=== PATIENT | female | born 1950 | race Caucasian/White ===

== ENCOUNTER 2017-02-01 13:37 | Emergency (ER) | payer MEDICARE, OTHER ==
[2017-02-01] MEDS ORDERED: KETOROLAC TROMETHAMINE 30 MG/ML VIAL IV ONE (14:11)
[2017-02-01] MEDS ORDERED: METOCLOPRAMIDE HCL 5 MG/ML VIAL IV ONE (14:11)
[2017-02-01] MEDS ORDERED: KETOROLAC TROMETHAMINE 30 MG/ML VIAL ONE (14:12)
[2017-02-01] MEDS ORDERED: METOCLOPRAMIDE HCL 5 MG/ML VIAL ONE (14:12)
[2017-02-01] MEDS ORDERED: NORMAL SALINE 1,000 ML IV ONE (14:12)
--- NOTE | 2017-02-01 15:11 | ERNOTE ---
Headache ER HPI - Narrative Date of Service: 02/01/17 - General Presenting Symptoms: headache Time Seen by Provider: 02/01/17 14:04 Source: patient, RN notes reviewed, old records Exam Limitations: no limitations - Immun/Allergies/Home Medications Immunizations: IMMUNIZATION HX Immunizations Up to Date Yes History of Influenza Vaccine Yes Hx Pneumococcal Vaccination Yes Allergies/Adverse Reactions: Allergies vyas flavor Allergy (Severe, Verified 02/01/17 13:52) CHERRIES CAUSE ANAPHYLAXIS adhesive tape Adverse Reaction (Mild, Verified 02/01/17 13:52) rash bupropion HCl [From Wellbutrin] Adverse Reaction (Mild, Verified 02/01/17 13:52) "HIGH" FEELING ibuprofen Adverse Reaction (Mild, Verified 02/01/17 13:52) N/V trazodone Adverse Reaction (Mild, Verified 02/01/17 13:52) "HIGH" FEELING Home Medications: HOME MEDICATIONS Alendronate Sodium 70 mg PO Q7D 08/02/13 [Last Taken Unknown] Fesoterodine Fumarate [Toviaz] 4 mg PO DAILY 08/02/13 [Last Taken Unknown] Ranitidine HCl [Acid Control] 150 mg PO BID 08/02/13 [Last Taken Unknown] Albuterol Sulfate [Proair Hfa] 1 - 2 puff IH Q4H PRN 03/31/15 [Last Taken Unknown] Lisinopril [Zestril] 2.5 mg PO HS 05/16/15 [Last Taken Unknown] Amitriptyline HCl [Elavil] 20 mg PO HS tablet 05/17/15 [Last Taken Unknown] Metoprolol Tartrate [Lopressor] 12.5 mg PO DAILY tablet 05/17/15 [Last Taken ] Multivitamins [Multivitamin Connor] 1 cap PO DAILY capsule 05/17/15 [Last Taken Unknown] Simvastatin [Zocor] 20 mg PO HS tablet 05/17/15 [Last Taken Unknown] ARIPiprazole [Abilify] 5 mg PO HS 10/29/15 [Last Taken Unknown] Omeprazole [Prilosec] 20 mg PO BID PRN 10/29/15 [Last Taken Unknown] ALPRAZolam [Xanax] 1 mg PO QID PRN 11/25/15 [Last Taken Unknown] Guaifenesin/Pseudoephedrne HCl [Mucinex D ER Tablet] 1 each PO BID PRN 11/25/15 [Last Taken Unknown] Naproxen Sodium [Anaprox DS] 550 mg PO BID PRN 11/25/15 [Last Taken Unknown] Nitroglycerin [Nitrostat] 0.4 mg SL Q5MX3 PRN 11/25/15 [Last Taken Unknown] Oxymetazoline HCl [Afrin] 2 spray NS BID PRN 11/25/15 [Last Taken Unknown] Warfarin Sodium [Coumadin] 0 mg PO DAILY 11/25/15 [Last Taken 03/06/16] Acetaminophen [Tylenol Arthritis] 1,300 mg PO Q8H PRN 03/12/16 [Last Taken Unknown] Albuterol Sulfate 2.5 mg IH Q4H PRN 03/12/16 [Last Taken Unknown] Aspirin [Aspirin Enteric Coated] 81 mg PO DAILY 03/12/16 [Last Taken Unknown] Calcium Carbonate [Tums [place]] 200 mg PO TID PRN 03/12/16 [Last Taken Unknown ] Desvenlafaxine Succinate [Pristiq ER] 100 mg PO DAILY 03/12/16 [Last Taken Unknown] Dextran 70/Hypromellose [Artificial Tears Eye Drops] 1 drop OP Q1H PRN 03/12/16 [Last Taken Unknown] Enoxaparin Sodium [Lovenox] 70 mg SC Q12H 03/12/16 [Last Taken 03/16/16 07:00] Ergocalciferol (Vitamin D2) [Vitamin D2] 2,000 units PO DAILY 03/12/16 [Last Taken Unknown] Gabapentin [Neurontin] 1,200 mg PO TID 03/12/16 [Last Taken Unknown] Salsalate [Disalcid] 1,500 mg PO BID 03/12/16 [Last Taken Unknown] Sotalol HCl [Sorine] 80 mg PO BID 03/12/16 [Last Taken Unknown] - Pain Pain Score: 6 - History of Present Illness Narrative: Roselyn is a 66-year-old female brought to the emergency department from the radiology waiting area for a headache that began just prior to this. She saw her primary care provider this morning and was having some numbness on her right side. An MRI was ordered and she was waiting to have her test done. Her INR was also checked this morning. It was 2.08. She states that she does not routinely have headaches. Her pain is located across her forehead and radiates around into the back of her head. She denies any associated symptoms. Date (Duration): 02/01/17 Time (Timing): 13:30 Timing of Headache: abrupt Context Headache: Present: new onset Quality: Present: achy Severity Maximum: Present: moderate Severity-Currently: Present: moderate Headache frequency: Present: no recent headache Modifying Factors - (Improves): Denies: rest, movement Modifying Factors - (Worsens): Denies: rest, movement, exposure to light Associated Symptoms: Reports: numbness/tingling. Denies: fever/chills, nausea, vomiting, sweating, nasal congestion, nasal drainage, fatigue, weakness, vision changes, confusion, light-headedness, loss of consciousness, seizures, neck pain /stiffness Exacerbated by:: Denies: light, noise, movement, position Prior Treament: Reports: recently seen, treated by physician. Denies: similar symptoms before Review of Systems - Review of Systems Constitutional: Present: See HPI EYE: Present: see HPI ENT: Present: See HPI Respiratory: Absent: shortness of breath, cough Cardiology: Absent: chest pain, palpitations Gastrointestinal/Abdominal: Present: See HPI Genitourinary: Present: no symptoms reported Musculoskeletal: Present: See HPI Skin: Absent: rash, lesions Neurological: Present: See HPI Endocrine: Present: no symptoms reported Hematologic/Lymphatic: Present: no symptoms reported Psych: Present: no symptoms reported - Patient's Past Medical History Patient History - Medical: Anxiety, Depression, GERD, Other Patient History - Cardiac/Respiratory: Atrial Fibrillation, Asthma, Coronary Heart Disease, Hypertension, Hyperlipidemia, Myocardial Infarction, Valvular Heart Disease Patient History - Cancer: No Hx of Cancer Patient History - Surgical Procedures: Appendectomy, Hysterectomy, Total Knee Replacement, Tubal Ligation, T & A, Other Patient History - Other: None LMP (females 10-50): Menopausal - Social History Living Situations: home Abuse History: No History of abuse Psych History: Hx of Depression, Current tx/ever been on anti-depressants or anti-anxiety meds Smoking Status: Never smoker Alcohol Use: none Drug Use: none - Immunizations Immunizations Up to Date: Yes Hx Pneumococcal Vaccination: Yes History of Influenza Vaccine: Yes Physical Exam - Physical Exam General Appearance: Present: wd/wn, alert, no apparent distress Head Exam: Present: normal inspection, no evidence of injury Eye Exam: PERRL: bilateral, EOMI: left, Abnormal EOM: right - Disconjugate gaze - chronic Ears, Nose, Throat: Present: normal ENT inspection Neck: Present: normal inspection, nontender, supple, full range of motion Respiratory: Present: no respiratory distress, normal breath sounds, no accessory muscle use, lungs clear Cardiovascular/Chest: Present: regular rate, rhythm, no murmur Extremity Exam: Present: normal inspection, normal range of motion, pedal edema - Mild Neurological Exam: Present: alert, oriented, normal mood/affect, no motor/ sensory deficits Skin Exam: Present: normal color, warm/dry ED Progress - Vital Signs Patient's Vital Signs:: I have reviewed the patient's vital signs. Vital Signs: Vital Signs 02/01/17 02/01/17 13:43 14:33 Temperature 36.9 C 36.9 C Pulse Rate 82 78 Respiratory 16 17 Rate Blood Pressure 145/92 141/89 O2 Sat by Pulse 99 99 Oximetry - Progress/Reassessment Chief Complaint: Headache Progress:: Improved Progress Note-Subjective: 02/01/17 15:10 Headache resolved with Toradol, Reglan and NS 1 liter bolus. Patient will have MRI as scheduled at 4:00. Departure Clinical Impression: Headache Qualifiers: Headache type: unspecified Headache chronicity pattern: acute headache Intractability: not intractable Qualified Code(s): R51 - Headache - Departure Disposition: Home Follow Up Needed Condition: Good Instructions: General Headache Without Cause Referrals: Deon Fairbanks MD [Primary Care Provider] -
[2017-02-01 15:55] VITALS: BP 139/81
== END 2017-02-01 15:30 | disposition home or self-care (01) ==
LOC: ER 13:37
DX: R51 Headache (principal)

== ENCOUNTER 2017-04-01 18:37 | Emergency (ER) | payer MEDICARE, OTHER ==
[2017-04-01 19:36] LABS: Hematocrit 40.6 % (37.0-47.0); Hemoglobin 13.4 gm/dL (12.5-16.0); Mean Cell Volume 87.5 fl (78-100); Mean Corpuscular Hemoglobin 28.9 pg (27-31); Mean Platelet Volume 10.4 fl (6.0-9.5); Neutrophil # 4.1 K/mm3 (1.3-6.0); Neutrophil % 55.5 % (42-75.0); Platelet Count 215 K/mm3 (150-450); Red Blood Count 4.64 M/mm3 (4.2-5.4); Red Cell Distribution Width 13.8 % (11.5-14.0); White Blood Count 7.4 K/mm3 (4.0-10.5)
[2017-04-01 19:54] LABS: ALT 24 U/L (19-67); AST 16 U/L (0-48); Albumin * 3.4 gm/dl (3.4-5.0); Alkaline Phosphatase * 84 U/L (50-170); Anion Gap 11.9 mmol/L (6.8-13.8); BUN/Creatinine Ratio 16.7 (9.0-21.6); Bilirubin, Total 0.2 mg/dL (0.0-1.1); Blood Urea Nitrogen 12 mg/dL (3-23); Ca. Corrected For Albumin 8.8 mg/dL (8.4-10.2); Calcium * 8.6 mg/dL (7.9-10.9); Carbon Dioxide 27.5 mmol/L (24-32.6); Chloride 105 mmol/L (97-106); Glucose * 128 mg/dL (70-110); Potassium 3.4 mmol/L (3.4-4.6); Sodium 141 mmol/L (132-142); Total Protein 7.1 gm/dL (6.2-8.2); Troponin I Less than 0.017 ng/ml (0.00-0.10)
[2017-04-01 19:59] LABS: Urine Bilirubin Negative (NEGATIVE); Urine Ketone Negative (NEGATIVE); Urine Nitrite Negative (NEGATIVE); Urine Protein Negative (NEGATIVE); Urine Specific Gravity <=1.005 SP.GR. (1.005-1.010); Urine Urobilinogen Normal (NORMAL)
--- NOTE | 2017-04-01 20:01 | ERNOTE ---
Syncope ER HPI Date of Service: 04/01/17 Stated Complaint: ? Time Seen by Provider: 04/01/17 19:51 Source: patient Immunizations: IMMUNIZATION HX Immunizations Up to Date Yes History of Influenza Vaccine No Hx Pneumococcal Vaccination No Allergies/Adverse Reactions: Allergies vyas flavor Allergy (Severe, Verified 02/01/17 13:52) CHERRIES CAUSE ANAPHYLAXIS adhesive tape Adverse Reaction (Mild, Verified 02/01/17 13:52) rash bupropion HCl [From Wellbutrin] Adverse Reaction (Mild, Verified 02/01/17 13:52) "HIGH" FEELING ibuprofen Adverse Reaction (Mild, Verified 02/01/17 13:52) N/V trazodone Adverse Reaction (Mild, Verified 02/01/17 13:52) "HIGH" FEELING Home Medications: HOME MEDICATIONS ALPRAZolam [Xanax] 1 mg PO TID PRN 04/01/17 [Last Taken Unknown] ARIPiprazole [Abilify] 5 mg PO DAILY 04/01/17 [Last Taken Unknown] Acetaminophen [Tylenol Arthritis] 650 mg PO Q8H PRN 04/01/17 [Last Taken Unknown ] Albuterol Sulfate [Albuterol Sulfate 0.63 MG/3ML] 0.63 mg IH QID 04/01/17 [Last Taken Unknown] Albuterol Sulfate [Proair Hfa] 2 puff IH TID PRN 04/01/17 [Last Taken Unknown] Alendronate Sodium [Fosamax] 70 mg PO Q7D 04/01/17 [Last Taken Unknown] Amitriptyline HCl [Elavil] 10 mg PO HS 04/01/17 [Last Taken Unknown] Aspirin [Aspirin EC] 81 mg PO DAILY 04/01/17 [Last Taken Unknown] Calcium Carbonate [Tums] 500 mg PO TID 04/01/17 [Last Taken Unknown] Desvenlafaxine Succinate [Pristiq] 100 mg PO DAILY 04/01/17 [Last Taken Unknown] Ergocalciferol (Vitamin D2) [Vitamin D2] 2,000 units PO DAILY 04/01/17 [Last Taken Unknown] Fesoterodine Fumarate [Toviaz] 4 mg PO DAILY 04/01/17 [Last Taken Unknown] Gabapentin [Neurontin] 600 mg PO DAILY 04/01/17 [Last Taken Unknown] Guaifenesin/Pseudoephedrne HCl [Mucinex D ER 600-60 mg Tablet] 1 tab PO Q12H PRN 04/01/17 [Last Taken Unknown] Lisinopril [Zestril] 2.5 mg PO HS 04/01/17 [Last Taken Unknown] Multivitamin [One Daily Multivitamin] 1 each PO DAILY 04/01/17 [Last Taken Unknown] Naproxen Sodium 550 mg PO BID PRN 04/01/17 [Last Taken Unknown] Nitroglycerin 0.4 mg SL Q5M PRN 04/01/17 [Last Taken Unknown] Omeprazole 20 mg PO BID PRN 04/01/17 [Last Taken Unknown] Oxymetazoline HCl [Afrin] 2 spray NS BID 04/01/17 [Last Taken Unknown] Polyvinyl Alcohol [Artificial Tears] 1 drop OP Q1H PRN 04/01/17 [Last Taken Unknown] Ranitidine HCl [Zantac] 150 mg PO BID 04/01/17 [Last Taken Unknown] Simvastatin 20 mg PO HS 04/01/17 [Last Taken Unknown] Sotalol HCl [Sorine] 120 mg PO BID 04/01/17 [Last Taken Unknown] Warfarin Sodium [Coumadin] 4 mg PO Q7D 04/01/17 [Last Taken Unknown] Warfarin Sodium [Coumadin] 5 mg PO Q48H 04/01/17 [Last Taken Unknown] - History of Present Illness Narrative: 66 year old who was at a picnic and sitting on a bench. She noted a "weird", feeling and then experienced a syncopal episode. She did not fall to the ground since she was supported by her niece that had been sitting next to her. Denies any chest, back or abdominal pain. No complaints of shortness of breath, palpitations, N/V/D, fevers or chills. Currently she states that she feels fine and thinks that she got hot which caused her to "pass out". History of A-Fib, CAD,anxiety, tachycardia, and syncope. She also states that when A -fib occurs she is able to recognize it, but this did not happen on this occasion. Date (Duration): 04/01/17 Prior Episodes: Present: single episode today Symptoms prior to episode: Present: other - felt strange Activity at time of episode: Present: sitting Character of event: Present: brief (seconds) Current Symptoms: Present: back to normal Prior Treament: Reports: similar symptoms before Review of Systems - Review of Systems Constitutional: Present: no symptoms reported EYE: Present: no symptoms reported ENT: Present: no symptoms reported Respiratory: Present: no symptoms reported Cardiology: Present: See HPI Gastrointestinal/Abdominal: Present: no symptoms reported Genitourinary: Present: no symptoms reported Musculoskeletal: Present: no symptoms reported Skin: Present: no symptoms reported Neurological: Present: no symptoms reported, See HPI Endocrine: Present: no symptoms reported Hematologic/Lymphatic: Present: no symptoms reported Psych: Present: See HPI All Other Systems: All systems neg except as marked - Patient's Past Medical History Patient History - Medical: Anxiety, Depression, GERD, Other Patient History - Cardiac/Respiratory: Atrial Fibrillation, Asthma, Coronary Heart Disease, Hypertension, Hyperlipidemia, Myocardial Infarction, Valvular Heart Disease Patient History - Cancer: No Hx of Cancer Patient History - Surgical Procedures: Appendectomy, Hysterectomy, Total Knee Replacement, Tubal Ligation, T & A, Other Patient History - Other: None LMP (females 10-50): Menopausal - Social History Living Situations: home Abuse History: No History of abuse Psych History: Hx of Depression, Current tx/ever been on anti-depressants or anti-anxiety meds Smoking Status: Never smoker Alcohol Use: none Drug Use: none - Immunizations Immunizations Up to Date: Yes Hx Pneumococcal Vaccination: No History of Influenza Vaccine: No Physical Exam - Physical Exam General Appearance: Present: alert, no apparent distress Head Exam: Present: normal inspection Eye Exam: Normal inspection: bilateral, PERRL: bilateral, EOMI: bilateral Ears, Nose, Throat: Present: normal ENT inspection Neck: Present: normal inspection Respiratory: Present: no respiratory distress Cardiovascular/Chest: Present: regular rate, rhythm Gastrointestinal/Abdominal: Present: nontender, nondistended, soft Back Exam: Present: normal inspection Extremity Exam: Present: normal inspection Neurological Exam: Present: alert, oriented, normal mood/affect Skin Exam: Present: normal color ED Progress - Results and Orders Patient's Lab Results:: I have reviewed the patient's lab results. - Vital Signs Patient's Vital Signs:: I have reviewed the patient's vital signs. Vital Signs: Vital Signs 04/01/17 04/01/17 04/01/17 18:41 19:05 19:10 Temperature 36.3 C L Pulse Rate 93 88 88 Respiratory 20 20 Rate Blood Pressure 146/75 144/87 O2 Sat by Pulse 98 96 Oximetry - EKG EKG: NSR, LBBB EKG read: Interp. by me EKG Comments: LAD, no change from the previous EKG. - Progress/Reassessment Chief Complaint: Syncopal Episode Progress:: Pain free at discharge Progress Note-Subjective: 04/01/17 20:48 It is likely that the patient had a vasovagal syncope. Hemodynamically stable. 04/09/17 20:55 Departure Clinical Impression: Syncope - Departure Disposition: Home self-care Condition: Good Instructions: Vasovagal Syncope, Adult Print Language: Cymro Additional Instructions: If you have chest pain, shortness of breath or feel sick return to the ED. Follow up with your primary care physician in the next 3-5 days. Referrals: Deon Fairbanks MD [Primary Care Provider] -
[2017-04-01 20:32] LABS: Urine Blood 5 /ul (NEGATIVE)
[2017-04-01 20:33] LABS: Urine Appearance Clear; Urine Bacteria 2+; Urine Color Yellow; Urine RBC None Seen /hpf (0-5); Urine WBC None Seen /hpf (0-5)
[2017-04-01 20:48] VITALS: BP 165/91
== END 2017-04-01 20:59 | disposition home or self-care (01) ==
LOC: ER 18:37
DX: R55 Syncope and collapse (principal); K21.9 Gastro-esophageal reflux disease without esophagitis; I48.91 Unspecified atrial fibrillation; Z79.01 Long term (current) use of anticoagulants; I25.2 Old myocardial infarction; I10 Essential (primary) hypertension; F41.8 Other specified anxiety disorders